=== PATIENT | female | born 1985 | race Caucasian/White ===

== ENCOUNTER 2018-01-20 13:45 | Emergency (ER) | payer MEDICAID ==
--- NOTE | 2018-01-20 14:14 | ED Physician Chart ---
ED Chief Complaint/HPI - Patient Information Date Seen:: 01/20/18 Time Seen:: 14:09 Chief Complaint:: rash History of Present Illness:: 32 yr old female with worsening diffuse rash since yest after eating pasta that was not gluten free and started with rash throughou the body no sore throat or swelling or trouble breathing Allergies:: Allergies Allergy/AdvReac Type Severity Reaction Status Date / Time gluten Allergy Verified 01/20/18 13:58 Penicillins Allergy Verified 01/20/18 13:58 Vitals:: Vital Signs - 8 hr 01/20/18 13:59 Temp 99.3 F HR 77 RR 20 BP 112/65 O2 Sat % 100 ED Review of Systems - Review of Systems General/Constitutional: No fever Skin: Rash Head: No headache, No light-headedness Eyes: No loss of vision, No pain, No diplopia ENT: No earache, No nasal drainage, No sore throat, No tinnitus Neck: No neck pain, No swelling, No thyromegaly, No stiffness, No mass noted Cardio Vascular: No chest pain, No palpitations, No PND, No orthopnea, No edema Pulmonary: No SOB, No cough, No sputum, No wheezing GI: No nausea, No vomiting, No diarrhea, No pain, No melena, No hematochezia, No constipation, No hematemesis G/U: No dysuria, No frequency, No hematuria Musculoskeletal: No bone or joint pain, No back pain, No muscle pain Endocrine: No polyuria, No polydipsia Psychiatric: No prior psych history, No depression, No anxiety, No suicidal ideation Hematopoietic: No bruising, No lymphadenopathy Allergic/Immuno: No urticaria, No angioedema Neurological: No syncope, No focal symptoms, No weakness, No paresthesia, No headache, No seizure, No dizziness, No confusion, No vertigo ED Past Medical History - Past Medical History Past Medical History: No significant medical hx ED Physical Exam - Physical Examination General/Constitutional: Awake, Well-developed, well-nourished, Alert, No distress, GCS 15, Non-toxic appearing, Ambulatory Head: Atraumatic Eyes: Lids, conjuctiva normal, PERRL, EOMI Skin: Nl inspection, No rash, No skin lesions, No ecchymosis, Well hydrated, No lymphadenopathy Other Skin comments:: diffuse maculopapular rash face arms legs torso ENMT: External ears, nose nl, Nasal exam nl, Lips, teeth, gums nl Neck: Nontender, Full ROM w/o pain, No JVD, No nuchal rigidity, No bruit, No mass, No stridor Respiratory: Nl effort/Exclusion, Clear to Auscultation, No Wheeze/Rhonchi/Rales Cardio Vascular: RRR, No murmur, gallop, rubs, NL S1 S2 GI: No tenderness/rebounding/guarding, No organomegaly, No hernia, Normal BS's, Nondistended, No mass/bruits, No McBurney tenderness : No CVA tenderness Extremities: No tenderness or effusion, Full ROM, normal strength in all extremities, No edema, Normal digits & nails Neuro/Psych: Alert/oriented, DTR's symmetric, Normal sensory exam, Normal motor strength, Judgement/insight normal, Mood normal, Normal gait, No focal deficits Misc: Normal back, No paraspinal tenderness ED Assessment - Assessment General Assessment: allergic rxn with diffuse rash s/p im inj benadryl 50 mg im and solumedrol 125 mg im ED Septic Shock - . Is Septic Shock (SBP<90, OR Lactate>4 mmol\L) present?: No - <6hrs of presentation: Vital Signs: Vital Signs - 8 hr 01/20/18 13:59 Temp 99.3 F HR 77 RR 20 BP 112/65 O2 Sat % 100 ED Reassessment (Disposition) - Diagnosis Diagnosis:: allergic rxn with rash - Patient Disposition Discharge/Transfer:: Home Condition at Disposition:: Stable, Improved
== END 2018-01-20 15:02 | disposition home or self-care (01) ==
LOC: ER 13:45
DX: T78.40XA Allergy, unspecified, initial encounter (principal); R21 Rash and other nonspecific skin eruption; Z88.0 Allergy status to penicillin; Z91.048 Other nonmedicinal substance allergy status; X58.XXXA Exposure to other specified factors, initial encounter
CPT/HCPCS: J1200; J2930; Z7502

== ENCOUNTER 2018-01-21 06:14 | Emergency (ER) | payer MEDICAID ==
--- NOTE | 2018-01-21 06:54 | ED Physician Chart ---
ED Chief Complaint/HPI - Patient Information Date Seen:: 01/21/18 Time Seen:: 06:25 Chief Complaint:: skin rash History of Present Illness:: skin rash. Uses TIDE detergent. No dyspagia, change in voice or shortness of breath or chest pain. Allergies:: Allergies Allergy/AdvReac Type Severity Reaction Status Date / Time gluten Allergy Verified 01/21/18 06:16 Penicillins Allergy Verified 01/21/18 06:16 Vitals:: Vital Signs - 8 hr 01/21/18 06:15 Temp 97.9 F HR 80 RR 18 BP 129/70 O2 Sat % 100 Historian:: Patient Review:: Nurse's Note Reviewed ED Review of Systems - Review of Systems General/Constitutional: No fever, No chills, No weight loss, No weakness, No diaphoresis, No edema, No loss of appetite Skin: Rash Head: No headache, No light-headedness Eyes: No loss of vision, No pain, No diplopia ENT: No earache, No nasal drainage, No sore throat, No tinnitus Neck: No neck pain, No swelling, No thyromegaly, No stiffness, No mass noted Cardio Vascular: No chest pain, No palpitations, No PND, No orthopnea, No edema Pulmonary: No SOB, No cough, No sputum, No wheezing GI: No nausea, No vomiting, No diarrhea, No pain, No melena, No hematochezia, No constipation, No hematemesis G/U: No dysuria, No frequency, No hematuria Musculoskeletal: No bone or joint pain, No back pain, No muscle pain Endocrine: No polyuria, No polydipsia Psychiatric: No prior psych history, No depression, No anxiety, No suicidal ideation Hematopoietic: No bruising, No lymphadenopathy Allergic/Immuno: Urticaria Neurological: No syncope, No focal symptoms, No weakness, No paresthesia, No headache, No seizure, No dizziness, No confusion, No vertigo Family Medical History - Family Member Mother History Unknown: Yes Hx Family Diabetes: Yes ED Physical Exam - Physical Examination General/Constitutional: Awake, Well-developed, well-nourished, Alert, GCS 15, Non-toxic appearing, Ambulatory Other Gen/Cons comments:: scratching herself. Head: Atraumatic Eyes: Lids, conjuctiva normal, PERRL, EOMI Skin: Nl inspection, No skin lesions, No ecchymosis, Well hydrated, No lymphadenopathy Other Skin comments:: pink, papular rash all over her body. ENMT: External ears, nose nl, Lips, teeth, gums nl, Oropharynx nl Other ENMT comments:: airway patent. Neck: Nontender, Full ROM w/o pain, No JVD, No nuchal rigidity, No bruit, No mass, No stridor Respiratory: Nl effort/Exclusion, Clear to Auscultation, No Wheeze/Rhonchi/Rales Cardio Vascular: RRR, No murmur, gallop, rubs, NL S1 S2 Neuro/Psych: Alert/oriented, Normal motor strength, Judgement/insight normal, Mood normal, Normal gait, No focal deficits Other Misc comments:: rash ED Assessment - Assessment General Assessment: sign out given to Dr. Cervantes at 7 a.m. ED Septic Shock - . Is Septic Shock (SBP<90, OR Lactate>4 mmol\L) present?: No - <6hrs of presentation: Vital Signs: Vital Signs - 8 hr 01/21/18 06:15 Temp 97.9 F HR 80 RR 18 BP 129/70 O2 Sat % 100 ED Reassessment (Disposition) - Reassessment Reassessment Condition:: Unchanged - Diagnosis Diagnosis:: TIDE contact dermatitis. - Aftercare/Follow up Instructions Aftercare/Follow-Up Instructions:: Refer to Discharge Instructions Notes:: Follow up with your primary care physician. Medication Prescribed:: Ranitidine, Zyrtec, Hydrocortisone cream 2.5%, - Patient Disposition Discharge/Transfer:: Home Condition at Disposition:: Stable, Unchanged
== END 2018-01-21 07:30 | disposition home or self-care (01) ==
LOC: ER 06:14
DX: L25.3 Unspecified contact dermatitis due to other chemical products (principal); L50.9 Urticaria, unspecified; Z88.0 Allergy status to penicillin; Z91.048 Other nonmedicinal substance allergy status
CPT/HCPCS: 99284; 96374; 96375; J3490; J2930; Z7502